=== PATIENT | male | born 1970 | race Caucasian/White ===

== ENCOUNTER 2018-08-08 14:37 | Inpatient (IN) | payer BC ==
[~2018-08-08] VITALS: Ht 195.6 cm; Wt 94.8 kg
[2018-08-08] MEDS ORDERED: IV NORMAL SALINE 1000ML BAG 1,000 ML IV ONE (16:30)
--- NOTE | 2018-08-08 16:40 | PHYS DOC ---
Past Medical History Past Medical History: Diabetes-Type II, High Cholesterol, Hypertension Additional Past Medical Histor: RAPID HEART RATE Past Surgical History: No Surgical History Additional Information: VAPOR Alcohol Use: None Drug Use: None Adult General Chief Complaint Chief Complaint: ABSCESS HPI HPI Patient is a 47 year old male presents with penile abscess. Patient states that this particular abscess has been there for one month. However the past few weeks and started to enlarge. Patient does report lancing the abscess himself at home and able to drain some fluid but not large amounts. He denies any fevers or chills. Denies any penile discharge or pain with urination. He does admit to not taking his medications including his diabetes medications. Additionally he reports a history of having smaller abscesses on his penis that he is placed and drained himself at home. He denies any previous MRSA infection. Review of Systems Review of Systems Constitutional: Denies fever or chills Eyes: Denies redness or eye pain HENT: Denies nasal congestion or sore throat Respiratory: Denies cough or shortness of breath Cardiovascular: Denies chest pain or palpitations GI: Denies abdominal pain, nausea, vomiting. : Denies dysuria, hematuria or penile discharge. Musculoskeletal: Denies back pain or joint pain Integument: Denies rash or skin lesions Neurologic: Denies headache or focal weakness Complete systems were reviewed and found to be within normal limits, except as documented in this note. Current Medications Current Medications Current Medications Medications (Trade) Dose Ordered Sig/Catr[place]ito Start Time Stop Time Status Last Admin Dose Admin Clindamycin Phosphate 50 ml @ 100 mls/hr 1X ONCE 08/08/18 18:00 08/08/18 18:29 Insulin Human Regular (HumuLIN R VIAL) 12 unit 1X ONCE 08/08/18 18:00 08/08/18 18:01 DC Sodium Chloride 1,000 ml @ 1,000 mls/hr 1X ONCE 08/08/18 16:30 08/08/18 17:29 DC 08/08/18 16:30 1,000 MLS/HR Allergies Allergies Allergies Coded Allergies Type Severity Reaction Last Updated Verified No Known Drug Allergies 08/08/18 No Physical Exam Physical Exam Constitutional: Well developed, well nourished, no acute distress, non-toxic appearance. HENT: Normocephalic, atraumatic, oropharynx moist. Eyes: EOMI, conjunctiva normal, no discharge. Neck: Normal range of motion, supple. Cardiovascular:Heart rate regular rhythm, no murmur Lungs & Thorax: Bilateral breath sounds clear to auscultation Abdomen: Bowel sounds normal, soft, no tenderness. : Indurated 4 cm circular abscess at the base of the penis, no penile discharge Skin: Warm, dry, indurated abscess on right medial thigh. Back: No tenderness, no CVA tenderness. Extremities: No clubbing, ROM intact, no edema. Neurologic: Alert and oriented X 3, normal motor function, no focal deficits noted. Psychologic: Affect normal, mood normal. Current Patient Data Vital Signs Vital Signs Date Time Temp Pulse Resp B/P (MAP) Pulse Ox O2 Delivery O2 Flow Rate FiO2 08/08/18 15:37 98.0 106 20 165/97 (119) 97 Room Air 98.0 Lab Values Laboratory Tests Test 08/08/18 16:40 08/08/18 16:55 Urine Collection Type Unknown Urine Color Yellow Urine Clarity Clear Urine pH 6.0 Urine Specific [place] >=1.030 Urine Protein Negative mg/dL (NEG-TRACE) Urine Glucose (UA) >=1000 mg/dL (NEG) Urine Ketones (Stick) Negative mg/dL (NEG) Urine Blood Negative (NEG) Urine Nitrite Negative (NEG) Urine Bilirubin Negative (NEG) Urine Urobilinogen Dipstick 0.2 mg/dL (0.2 mg/dL) Urine Leukocyte Esterase Negative (NEG) Urine RBC 3-5 /HPF (0-2) Urine WBC 0 /HPF (0-4) Urine Bacteria 0 /HPF (0-FEW) White Blood Count 11.2 x10^3/uL (4.0-11.0) H Red Blood Count 5.31 x10^6/uL (4.30-5.70) Hemoglobin 15.8 g/dL (13.0-17.5) Hematocrit 46.2 % (39.0-53.0) Mean Corpuscular Volume 87 fL (79-100) Mean Corpuscular Hemoglobin 30 pg (25-35) Mean Corpuscular Hemoglobin Concent 34 g/dL (31-37) Red Cell Distribution Width 13.3 % (11.5-14.5) Platelet Count 247 x10^3/uL (140-400) Neutrophils (%) (Auto) 68 % (31-73) Lymphocytes (%) (Auto) 23 % (24-48) L Monocytes (%) (Auto) 7 % (0-9) Eosinophils (%) (Auto) 2 % (0-3) Basophils (%) (Auto) 1 % (0-3) Neutrophils # (Auto) 7.6 x10^3uL (1.8-7.7) Lymphocytes # (Auto) 2.6 x10^3/uL (1.0-4.8) Monocytes # (Auto) 0.8 x10^3/uL (0.0-1.1) Eosinophils # (Auto) 0.2 x10^3/uL (0.0-0.7) Basophils # (Auto) 0.1 x10^3/uL (0.0-0.2) Sodium Level 136 mmol/L (136-145) Potassium Level 3.6 mmol/L (3.5-5.1) Chloride Level 101 mmol/L (98-107) Carbon Dioxide Level 23 mmol/L (21-32) Anion Gap 12 (6-14) Blood Urea Nitrogen 10 mg/dL (8-26) Creatinine 0.9 mg/dL (0.7-1.3) Estimated GFR (Cockcroft-Gault) 89.7 BUN/Creatinine Ratio 11 (6-20) Glucose Level 353 mg/dL (70-99) H Lactic Acid Level 0.6 mmol/L (0.4-2.0) Calcium Level 8.2 mg/dL (8.5-10.1) L Magnesium Level 1.8 mg/dL (1.8-2.4) Total Bilirubin 0.3 mg/dL (0.2-1.0) Aspartate Amino Transferase (AST) 18 U/L (15-37) Alanine Aminotransferase (ALT) 23 U/L (16-63) Alkaline Phosphatase 95 U/L (46-116) Total Protein 6.8 g/dL (6.4-8.2) Albumin 3.3 g/dL (3.4-5.0) L Albumin/Globulin Ratio 0.9 (1.0-1.7) L Laboratory Tests 08/08/18 16:55 Laboratory Tests 08/08/18 16:55 EKG EKG [] Radiology/Procedures Radiology/Procedures [] Course & Med Decision Making Course & Med Decision Making 47 year old male presented to ED for penile abscess. He states he has a history of these that he has lanced and drained himself at home, however this one will not go away. He denies any fever or chills. Patient does admit to being non-compliant for all his medications, including his diabetes medications. Labs and imaging were obtained and posted to chart. Systematic treatment provided with interval improvement. After further discussion with patient and reexamination it was determined that admission would be the best option so he can follow up with urology in the morning. Report given to Dr. Aguillon to follow up on ultra sound findings. Patient requiring admission for further evaluation and treatment. Discussed with Dr. Hopper who is in agreement with admission. Discussed findings and plan with patient and family, who acknowledge understanding and agreement. Dragon Disclaimer Dragon Disclaimer This electronic medical record was generated, in whole or in part, using a voice recognition dictation system. Departure Departure Impression: Primary Impression: Penile abscess Additional Impression: Hyperglycemia Disposition: 09 ADMITTED INPATIENT Admitting Physician: Other (Dr. Hopper) Condition: GUARDED Referrals: UNKNOWN PCP NAME (PCP) Problem Qualifiers RENA CABRAL DO Aug 08, 2018 16:40
[2018-08-08 16:53] LABS: BILIRUBIN,URINE NEGATIVE (NEG); CLARITY,URINE CLEAR; COLOR,URINE YELLOW; NITRITE,URINE NEGATIVE (NEG); PROTEIN,URINE NEGATIVE (NEG-TRACE); UROBILINOGEN,URINE 0.2 mg/dL (0.2 mg/dL)
[2018-08-08 17:00] LABS: BACTERIA,URINE 0 /HPF (0-FEW); WBC,URINE 0 /HPF (0-4)
[2018-08-08 17:20] LABS: BASO # 0.1 x10^3/uL (0.0-0.2); BASO % 1 % (0-3); EOS # 0.2 x10^3/uL (0.0-0.7); EOS % 2 % (0-3); HEMATOCRIT 46.2 % (39.0-53.0); HEMOGLOBIN 15.8 g/dL (13.0-17.5); LYMPH # 2.6 x10^3/uL (1.0-4.8); LYMPH % 23 % (24-48); MEAN CORPUSCULAR HEMOGLOBIN 30 pg (25-35); MEAN CORPUSCULAR HGB CONC 34 g/dL (31-37); MEAN CORPUSCULAR VOLUME 87 fL (79-100); MONO # 0.8 x10^3/uL (0.0-1.1); MONO % 7 % (0-9); NEUT # 7.6 x10^3uL (1.8-7.7); NEUT % 68 % (31-73); PLATELET COUNT 247 x10^3/uL (140-400); RED BLOOD COUNT 5.31 x10^6/uL (4.30-5.70); RED CELL DISTRIBUTION WIDTH 13.3 % (11.5-14.5); WHITE BLOOD COUNT 11.2 x10^3/uL (4.0-11.0)
[2018-08-08 17:24] LABS: CALCIUM 8.2 mg/dL (8.5-10.1); CREATININE 0.9 mg/dL (0.7-1.3); GFR 89.7; POTASSIUM 3.6 mmol/L (3.5-5.1)
[2018-08-08 17:30] LABS: ALBUMIN 3.3 g/dL (3.4-5.0); ALBUMIN/GLOBULIN RATIO 0.9 (1.0-1.7); MAGNESIUM 1.8 mg/dL (1.8-2.4); TOTAL BILIRUBIN 0.3 mg/dL (0.2-1.0); TOTAL PROTEIN 6.8 g/dL (6.4-8.2)
[2018-08-08] MEDS ORDERED: ACETAMINOPHEN 325 MG TABLET. PO PRN (18:00)
[2018-08-08] MEDS ORDERED: INSULIN REGULAR 100 UNIT/ML 3ML VIAL. SQ ONE (18:00)
[2018-08-08] MEDS ORDERED: CLINDAMYCIN 600MG PREMIX 50 ML IV ONE (18:00)
[2018-08-08] MEDS ORDERED: DEXTROSE 50% 25 GM / 50ML DISP.SYRIN. IV PRN ×2 (18:00→20:15)
--- NOTE | 2018-08-08 18:30 | RAD ---
Scrotal ultrasound: Reason for examination: Redness and swelling at the base of the penis and in the upper scrotum and right groin. The right testicle measures 4.8 x 2.2 x 3.4 cm in greatest dimension and appears homogeneous and shows normal vascular flow. The right epididymis is normal in size and shows normal vascular flow but contains a 3 mm cyst. There is a small right hydrocele. The left testicle measures 5.0 x 2.2 x 3.3 cm in greatest dimension and is homogeneous and shows normal vascular flow. No abnormality seen at the epididymis which shows normal vascular flow. A varicocele is present lateral to the left testicle. There is a small left hydrocele. In the right groin in the area of clinical concern, there is a small 1.5 x 0.5 x 0.5 cm complex fluid collection. At the base of the penis and upper scrotum, there is a complex fluid collection measuring approximately 2.5 x 1.5 x 0.7 cm in size. IMPRESSION: Small 3 mm right epididymal cyst. Small bilateral hydroceles. Left varicocele. Small complex fluid collections measuring 1.5 cm in greatest dimension at the right groin and 2.5 cm in greatest dimension at the base of the penis and upper scrotal region which correspond to the areas of clinical concern. Electronically signed by: Bhargavi Claros MD (08/08/2018 6:27 PM) [facility]
[2018-08-08 18:55] VITALS: BP 156/93
[2018-08-08] MEDS ORDERED: PIP/TAZO PER PHARMACY MC PRN (20:15)
[2018-08-08] MEDS ORDERED: VANCOMYCIN 2 GM in IV NORMAL SALINE 500ML BAG 500 ML IV ONE (20:30)
[2018-08-08] MEDS: IV NORMAL SALINE 1000ML BAG 1,000 ML IV SCH (21:39)
[2018-08-08] MEDS: PIPERACILLIN/TAZOBACTAM 3.375 GM in IV NORMAL SALINE 50ML 50 ML IV SCH (21:39)
[2018-08-08] MEDS: VANCOMYCIN PER PHARMACY MC PRN ×2 (22:04→22:13)
--- NOTE | 2018-08-08 22:07 | NUR ---
Pharmacy Vancomycin Dosing Note S:Consulted to monitor and dose vancomycin started 08/08/18. O:SERENA EUGENE is a 47 year old M with SCROTAL ABSCESS . Height: 6 feet, 5 inches Weight: 94.898397 kg [place] Body Weight: 89.10 Adjusted Body Weight: 91.38 Dosing Weight: Actual Other Antibiotics: ZOSYN 3.375GM IV Q6H LABS: Last BUN: 10 Last Creatinine: 0.9 Creatinine Clearance: >100 mL/min Last WBC: 11.2 Last Procalcitonin: Tmax (past 24 hours): Microbiology: I/O: Drug Levels: Last level: on at Last dose given at Vancomycin Dosing: Loading Dose: 2000 mg x1 08/08/182138 Dosing Weight: Actual Target Trough: 10-20 A: Based on: Actual Wt and CrCl P: 1. 08/09/18 1000 Vancomycin 1500 mg IV q12h 2. Follow up Trough level on 08/09/18 at 2130 3. Pharmacy will continue to monitor, follow and adjust therapy as needed. CHOCO DEL VALLE RPH, 08/08/[id number] Signed: 08/08/18 at 2208 by CHOCO DEL VALLE RPH PHA Addendum: 08/08/18 at 2218 by CHOCO DEL VALLE RPH PHA 08/10/18 0930 RESCHEDULED Vancomycin trough level Signed: 08/08/18 at 2218 by CHOCO DEL VALLE RPH PHA
[2018-08-08 23:00] VITALS: BP 118/77
[2018-08-09] MEDS: PIPERACILLIN/TAZOBACTAM 3.375 GM in IV NORMAL SALINE 50ML 50 ML IV SCH ×4 (00:33→16:31)
[2018-08-09 03:00] VITALS: BP 117/73
[2018-08-09 07:00] VITALS: BP 121/82
[2018-08-09] MEDS: INSULIN LISPRO 300 UNITS/3 ML INSULN.PEN. SQ SCH ×3 (07:38→16:36)
[2018-08-09] MEDS: IV NORMAL SALINE 1000ML BAG 1,000 ML IV SCH (07:48)
[2018-08-09] MEDS: VANCOMYCIN 1.5 GM in IV NORMAL SALINE 500ML BAG 500 ML IV SCH ×2 (07:49→22:35)
[2018-08-09] MEDS ORDERED: INSULIN LISPRO 300 UNITS/3 ML INSULN.PEN. SQ SCH (08:00)
[2018-08-09] MEDS ORDERED: LIDOCAINE 2% 20 ML VIAL. IJ ONE (10:00)
[2018-08-09] MEDS ORDERED: IBUPROFEN 200 MG TABLET. PO PRN ×2 (10:30→14:30)
[2018-08-09 10:59] LABS: CREATININE 0.8 mg/dL (0.7-1.3); GFR 102.7
[2018-08-09 11:00] VITALS: BP 150/93
--- NOTE | 2018-08-09 11:11 | PDOC ---
Provider Note Provider Note PT SEEN AND EXAMINED CONSULT DICTATED THANK YOU SEBASTIÁN BOWMAN MD Aug 09, 2018 11:11
[2018-08-09] MEDS: VANCOMYCIN PER PHARMACY MC PRN (11:26)
--- NOTE | 2018-08-09 14:59 | PDOC2 ---
UROLOGY CONSULT Date of Consult Date of Consult DATE: 08/09/18 TIME: 14:45 Reason for Consult Reason for Consult: scrotal abscess Source Source: Chart review, Patient History of Present Illness Reason for Visit: 47 yo male admitted for scrotal abscess. He has noticed increased swelling of upper scrotum after trying to waqas a pimple on his penis a few days ago. Also has noticed a boil on right upper thigh. No fevers, chills. Past Medical History Endocrine: Diabetes Family History Family History: Family History Unknown Current Medications Current Medications Current Medications Acetaminophen (Tylenol) 650 mg PRN Q4HRS PRN PO FEVER; Start 08/08/18 at 18:00 ; Stop 08/09/18 at 17:59 Clindamycin Phosphate 50 ml @ 100 mls/hr 1X ONCE IV Last administered on 08/08at 18:20; Start 08/08/18 at 18:00; Stop 08/08/18 at 18:29; Status DC Dextrose (Dextrose 50%-Water Syringe) 12.5 gm PRN Q15MIN PRN IV SEE COMMENTS; Start 08/08/18 at 18:00 Dextrose (Dextrose 50%-Water Syringe) 12.5 gm PRN Q15MIN PRN IV SEE COMMENTS; Start 08/08/18 at 20:15; Status UNV Ibuprofen (Motrin) 200 mg PRN Q6HRS PRN PO INFLAMMATION Last administered on at 10:33; Start 08/09/18 at 10:30; Stop 08/09/18 at 14:30; Status DC Ibuprofen (Motrin) 600 mg PRN Q6HRS PRN PO INFLAMMATION Last administered on at 14:36; Start 08/09/18 at 14:30 Insulin Human Lispro (HumaLOG) 0-5 UNITS TIDWMEALS SQ Last administered on 08/09at 11:54; Start 08/09/18 at 08:00 Insulin Human Lispro (HumaLOG) 0-5 UNITS TIDWMEALS SQ ; Start 08/09/18 at 08:00 ; Status UNV Insulin Human Regular (HumuLIN R VIAL) 12 unit 1X ONCE SQ Last administered on 08/08/18at 18:20; Start 08/08/18 at 18:00; Stop 08/08/18 at 18:01; Status DC Lactobacillus Rhamnosus (Culturelle) 1 cap BID PO ; Start 08/09/18 at 21:00 Lidocaine HCl 10 ml 1X ONCE IJ Last administered on 08/09/18at 10:00; Start at 10:00; Stop 08/09/18 at 10:01; Status DC Piperacillin Sod/ Tazobactam Sod (Zosyn Per Pharmacy) 1 each PRN DAILY PRN MC SEE COMMENTS; Start 08/08/18 at 20:15 Piperacillin Sod/ Tazobactam Sod 3.375 gm/Sodium Chloride 50 ml @ 100 mls/hr Q6HRS IV Last administered on 08/09/18at 11:27; Start 08/08/18 at 20:30 Sodium Chloride 1,000 ml @ 75 mls/hr [id number] IV Last administered on at 07:48; Start 08/08/18 at 21:00 Sodium Chloride 1,000 ml @ 1,000 mls/hr 1X ONCE IV Last administered on at 16:30; Start 08/08/18 at 16:30; Stop 08/08/18 at 17:29; Status DC Vancomycin HCl (Vanco Per Pharmacy) 1 each PRN DAILY PRN MC SEE COMMENTS Last administered on 08/09/18at 11:26; Start 08/08/18 at 20:15 Vancomycin HCl (Vancomycin Trough Level) 1 each 1X ONCE MC ; Start 08/10/18 at 09:30; Stop 08/10/18 at 09:31 Vancomycin HCl 1.5 gm/Sodium Chloride 500 ml @ 250 mls/hr Q12H IV Last administered on 08/09/18at 07:49; Start 08/09/18 at 10:00 Vancomycin HCl 2 gm/Sodium Chloride 500 ml @ 250 mls/hr 1X ONCE IV Last administered on 08/08/18at 21:39; Start 08/08/18 at 20:30; Stop 08/08/18 at 22:29 ; Status DC Allergies Allergies: Coded Allergies: No Known Drug Allergies (Unverified , 08/08/18) ROS Review Of Systems: CONSTITUTIONAL: No fever or chills EYES: No recent changes SKIN: No rash or itching CARDIOVASCULAR: No chest pain, syncope, palpitations, or edema RESPIRATORY: No SOB or cough GASTROINTESTINAL: No nausea, vomiting or abdominal pain NEUROLOGICAL: No headaches or weakness ENDOCRINE: No cold or heat intolerance GENITOURINARY: No urgency or frequency of urination MUSCULOSKELETAL: No back pain or joint pain LYMPHATICS: No enlarged lymph nodes PSYCHIATRIC: No anxiety or depression Physical Exam Physical Exam: Except as noted in HPI: General: Pleasant, no acute distress, well groomed Eyes: conjunctiva anicteric, eyes full range of motion ENT: moist oral mucosa, normal dentition Neck: Trachea midline, no masses Respiratory: unlabored breathing, not using accessory muscles, no crackles or wheezes Cardiovascular: no peripheral edema Abdomen: nontender, nondistended, no hepatosplenomegaly, no masses Skin: no rashes or skin lesions on visualized skin except as noted below Psych: normal mood, affect. Alert and oriented x 3. : 3 cm boil uper scrotum near penile junction. Also 3 cm boil right upper thigh near groin crease. Vitals VITALS Vital Signs Date Time Temp Pulse Resp B/P (MAP) Pulse Ox O2 Delivery O2 Flow Rate FiO2 08/09/18 11:00 97.6 92 18 150/93 (112) 99 Room Air 97.6 Labs Labs Laboratory Tests Test 08/08/18 16:40 08/08/18 16:55 08/08/18 20:57 08/09/18 07:33 Urine Collection Type Unknown Urine Color Yellow Urine Clarity Clear Urine pH 6.0 Urine Specific [place] >=1.030 Urine Protein Negative mg/dL (NEG-TRACE) Urine Glucose (UA) >=1000 mg/dL (NEG) Urine Ketones (Stick) Negative mg/dL (NEG) Urine Blood Negative (NEG) Urine Nitrite Negative (NEG) Urine Bilirubin Negative (NEG) Urine Urobilinogen Dipstick 0.2 mg/dL (0.2 mg/dL) Urine Leukocyte Esterase Negative (NEG) Urine RBC 3-5 /HPF (0-2) Urine WBC 0 /HPF (0-4) Urine Bacteria 0 /HPF (0-FEW) White Blood Count 11.2 x10^3/uL (4.0-11.0) Red Blood Count 5.31 x10^6/uL (4.30-5.70) Hemoglobin 15.8 g/dL (13.0-17.5) Hematocrit 46.2 % (39.0-53.0) Mean Corpuscular Volume 87 fL (79-100) Mean Corpuscular Hemoglobin 30 pg (25-35) Mean Corpuscular Hemoglobin Concent 34 g/dL (31-37) Red Cell Distribution Width 13.3 % (11.5-14.5) Platelet Count 247 x10^3/uL (140-400) Neutrophils (%) (Auto) 68 % (31-73) Lymphocytes (%) (Auto) 23 % (24-48) Monocytes (%) (Auto) 7 % (0-9) Eosinophils (%) (Auto) 2 % (0-3) Basophils (%) (Auto) 1 % (0-3) Neutrophils # (Auto) 7.6 x10^3uL (1.8-7.7) Lymphocytes # (Auto) 2.6 x10^3/uL (1.0-4.8) Monocytes # (Auto) 0.8 x10^3/uL (0.0-1.1) Eosinophils # (Auto) 0.2 x10^3/uL (0.0-0.7) Basophils # (Auto) 0.1 x10^3/uL (0.0-0.2) Sodium Level 136 mmol/L (136-145) Potassium Level 3.6 mmol/L (3.5-5.1) Chloride Level 101 mmol/L (98-107) Carbon Dioxide Level 23 mmol/L (21-32) Anion Gap 12 (6-14) Blood Urea Nitrogen 10 mg/dL (8-26) Creatinine 0.9 mg/dL (0.7-1.3) Estimated GFR (Cockcroft-Gault) 89.7 BUN/Creatinine Ratio 11 (6-20) Glucose Level 353 mg/dL (70-99) Lactic Acid Level 0.6 mmol/L (0.4-2.0) Calcium Level 8.2 mg/dL (8.5-10.1) Magnesium Level 1.8 mg/dL (1.8-2.4) Total Bilirubin 0.3 mg/dL (0.2-1.0) Aspartate Amino Transf (AST/SGOT) 18 U/L (15-37) Alanine Aminotransferase (ALT/SGPT) 23 U/L (16-63) Alkaline Phosphatase 95 U/L (46-116) Total Protein 6.8 g/dL (6.4-8.2) Albumin 3.3 g/dL (3.4-5.0) Albumin/Globulin Ratio 0.9 (1.0-1.7) Glucose (Fingerstick) 160 mg/dL (70-99) 235 mg/dL (70-99) Test 08/09/18 10:35 08/09/18 11:25 Creatinine 0.8 mg/dL (0.7-1.3) Estimated GFR (Cockcroft-Gault) 102.7 Glucose (Fingerstick) 266 mg/dL (70-99) Laboratory Tests Test 08/08/18 16:40 08/08/18 16:55 08/08/18 20:57 08/09/18 07:33 Urine Collection Type Unknown Urine Color Yellow Urine Clarity Clear Urine pH 6.0 Urine Specific [place] >=1.030 Urine Protein Negative mg/dL (NEG-TRACE) Urine Glucose (UA) >=1000 mg/dL (NEG) Urine Ketones (Stick) Negative mg/dL (NEG) Urine Blood Negative (NEG) Urine Nitrite Negative (NEG) Urine Bilirubin Negative (NEG) Urine Urobilinogen Dipstick 0.2 mg/dL (0.2 mg/dL) Urine Leukocyte Esterase Negative (NEG) Urine RBC 3-5 /HPF (0-2) Urine WBC 0 /HPF (0-4) Urine Bacteria 0 /HPF (0-FEW) White Blood Count 11.2 x10^3/uL (4.0-11.0) Red Blood Count 5.31 x10^6/uL (4.30-5.70) Hemoglobin 15.8 g/dL (13.0-17.5) Hematocrit 46.2 % (39.0-53.0) Mean Corpuscular Volume 87 fL (79-100) Mean Corpuscular Hemoglobin 30 pg (25-35) Mean Corpuscular Hemoglobin Concent 34 g/dL (31-37) Red Cell Distribution Width 13.3 % (11.5-14.5) Platelet Count 247 x10^3/uL (140-400) Neutrophils (%) (Auto) 68 % (31-73) Lymphocytes (%) (Auto) 23 % (24-48) Monocytes (%) (Auto) 7 % (0-9) Eosinophils (%) (Auto) 2 % (0-3) Basophils (%) (Auto) 1 % (0-3) Neutrophils # (Auto) 7.6 x10^3uL (1.8-7.7) Lymphocytes # (Auto) 2.6 x10^3/uL (1.0-4.8) Monocytes # (Auto) 0.8 x10^3/uL (0.0-1.1) Eosinophils # (Auto) 0.2 x10^3/uL (0.0-0.7) Basophils # (Auto) 0.1 x10^3/uL (0.0-0.2) Sodium Level 136 mmol/L (136-145) Potassium Level 3.6 mmol/L (3.5-5.1) Chloride Level 101 mmol/L (98-107) Carbon Dioxide Level 23 mmol/L (21-32) Anion Gap 12 (6-14) Blood Urea Nitrogen 10 mg/dL (8-26) Creatinine 0.9 mg/dL (0.7-1.3) Estimated GFR (Cockcroft-Gault) 89.7 BUN/Creatinine Ratio 11 (6-20) Glucose Level 353 mg/dL (70-99) Lactic Acid Level 0.6 mmol/L (0.4-2.0) Calcium Level 8.2 mg/dL (8.5-10.1) Magnesium Level 1.8 mg/dL (1.8-2.4) Total Bilirubin 0.3 mg/dL (0.2-1.0) Aspartate Amino Transf (AST/SGOT) 18 U/L (15-37) Alanine Aminotransferase (ALT/SGPT) 23 U/L (16-63) Alkaline Phosphatase 95 U/L (46-116) Total Protein 6.8 g/dL (6.4-8.2) Albumin 3.3 g/dL (3.4-5.0) Albumin/Globulin Ratio 0.9 (1.0-1.7) Glucose (Fingerstick) 160 mg/dL (70-99) 235 mg/dL (70-99) Test 08/09/18 10:35 08/09/18 11:25 Creatinine 0.8 mg/dL (0.7-1.3) Estimated GFR (Cockcroft-Gault) 102.7 Glucose (Fingerstick) 266 mg/dL (70-99) Assessment/Plan Assessment/Plan Informed consent obtained. Scrotum and right thigh sterilely prepped and draped. Lidocaine injected in to each abscess. Incision made in the scrotal and right thigh abscess with drainage of several cc's of pus. Loculations broken down with a clamp. Sterile packing tape inserted and gauze applied. No complications. Antibiotics per ID. OK for d/c from urology perspective. Needs better glucose control to prevent future infections. F/U in 1 week in urology clinic. NHAN PICHARDO MD Aug 09, 2018 14:59
[2018-08-09 15:00] VITALS: BP 134/83
[2018-08-09] MEDS ORDERED: hydrALAZINE 25 MG TABLET PO PRN (16:45)
[2018-08-09] MEDS ORDERED: ENOXAPARIN 40 MG/0.4 ML SYRINGE. SQ SCH (17:00)
[2018-08-09] MEDS: hydroCHLOROthiazide 12.5 MG CAPSULE PO SCH (17:06)
[2018-08-09] MEDS: LISINOPRIL 20 MG TABLET PO SCH (17:06)
--- NOTE | 2018-08-09 17:10 | PDOC1 ---
History and Physical Date of Admission Date of Admission DATE: 08/09/18 TIME: 16:54 History of Present Illness History of Present Illness 47 yo male hx of DM and HTN, not taking meds in 2 years who presents with scrotal abscess and right thigh abscess since many months. has tried lancing at home with drainage but no improvement. no fever, no penile discharge. no scrotal pain. no dysuria. no hx of MRSA infection in the past. patient admitted by hospitalist service for further evaluation. Past Medical History Past Medical History hx of DM, HTN not on meds Endocrine: Diabetes Past Surgical History Past Surgical History denies Family History Family History dm Family History: Family History Unknown Social History Smoke: No ALCOHOL: none Drugs: None Current Problem List Problem List Problems Medical Problems: (1) Hyperglycemia Status: Acute (2) Penile abscess Status: Acute Current Medications Current Medications Current Medications Sodium Chloride 1,000 ml @ 1,000 mls/hr 1X ONCE IV Last administered on at 16:30; Start 08/08/18 at 16:30; Stop 08/08/18 at 17:29; Status DC Clindamycin Phosphate 50 ml @ 100 mls/hr 1X ONCE IV Last administered on 08/08at 18:20; Start 08/08/18 at 18:00; Stop 08/08/18 at 18:29; Status DC Insulin Human Regular (HumuLIN R VIAL) 12 unit 1X ONCE SQ Last administered on 08/08/18at 18:20; Start 08/08/18 at 18:00; Stop 08/08/18 at 18:01; Status DC Acetaminophen (Tylenol) 650 mg PRN Q4HRS PRN PO FEVER; Start 08/08/18 at 18:00 ; Stop 08/09/18 at 17:59 Insulin Human Lispro (HumaLOG) 0-5 UNITS TIDWMEALS SQ Last administered on 08/09at 16:36; Start 08/09/18 at 08:00 Dextrose (Dextrose 50%-Water Syringe) 12.5 gm PRN Q15MIN PRN IV SEE COMMENTS; Start 08/08/18 at 18:00 Piperacillin Sod/ Tazobactam Sod (Zosyn Per Pharmacy) 1 each PRN DAILY PRN MC SEE COMMENTS; Start 08/08/18 at 20:15 Vancomycin HCl (Vanco Per Pharmacy) 1 each PRN DAILY PRN MC SEE COMMENTS Last administered on 08/09/18at 11:26; Start 08/08/18 at 20:15 Insulin Human Lispro (HumaLOG) 0-5 UNITS TIDWMEALS SQ ; Start 08/09/18 at 08:00 ; Status UNV Dextrose (Dextrose 50%-Water Syringe) 12.5 gm PRN Q15MIN PRN IV SEE COMMENTS; Start 08/08/18 at 20:15; Status UNV Sodium Chloride 1,000 ml @ 75 mls/hr [id number] IV Last administered on at 07:48; Start 08/08/18 at 21:00 Piperacillin Sod/ Tazobactam Sod 3.375 gm/Sodium Chloride 50 ml @ 100 mls/hr Q6HRS IV Last administered on 08/09/18at 16:31; Start 08/08/18 at 20:30 Vancomycin HCl 2 gm/Sodium Chloride 500 ml @ 250 mls/hr 1X ONCE IV Last administered on 08/08/18at 21:39; Start 08/08/18 at 20:30; Stop 08/08/18 at 22:29 ; Status DC Vancomycin HCl 1.5 gm/Sodium Chloride 500 ml @ 250 mls/hr Q12H IV Last administered on 08/09/18at 07:49; Start 08/09/18 at 10:00 Vancomycin HCl (Vancomycin Trough Level) 1 each 1X ONCE MC ; Start 08/10/18 at 09:30; Stop 08/10/18 at 09:31 Lidocaine HCl 10 ml 1X ONCE IJ Last administered on 08/09/18at 10:00; Start at 10:00; Stop 08/09/18 at 10:01; Status DC Ibuprofen (Motrin) 200 mg PRN Q6HRS PRN PO INFLAMMATION Last administered on at 10:33; Start 08/09/18 at 10:30; Stop 08/09/18 at 14:30; Status DC Lactobacillus Rhamnosus (Culturelle) 1 cap BID PO ; Start 08/09/18 at 21:00 Ibuprofen (Motrin) 600 mg PRN Q6HRS PRN PO INFLAMMATION Last administered on at 14:36; Start 08/09/18 at 14:30 Enoxaparin Sodium (Lovenox 40mg Syringe) 40 mg Q24H SQ Last administered on at 16:41; Start 08/09/18 at 17:00 Allergies Allergies: Coded Allergies: No Known Drug Allergies (Unverified , 08/08/18) ROS Review of System CONSTITUTIONAL: No fever or chills EYES: No recent changes SKIN: No rash or itching CARDIOVASCULAR: No chest pain, syncope, palpitations, or edema RESPIRATORY: No SOB or cough GASTROINTESTINAL: No nausea, vomiting or abdominal pain NEUROLOGICAL: No headaches or weakness ENDOCRINE: No cold or heat intolerance GENITOURINARY: No urgency or frequency of urination MUSCULOSKELETAL: No back pain or joint pain LYMPHATICS: No enlarged lymph nodes PSYCHIATRIC: No anxiety or depression Physical Exam Physical Exam GENERAL: No apparent distress. Alert and oriented. HEENT: Head normocephalic, atraumatic. NECK: Supple LUNGS: Clear to auscultation. HEART: RRR, S1, S2 present, pulses intact ABDOMEN: Soft, positive bowel sounds. EXTREMITIES: right upper thigh abscess with fluctuance NEUROLOGIC: Normal speech, normal tone PSYCHIATRIC: Normal affect, normal mood. SKIN: No ulceration. : scrotal abscess present Vitals Vitals Vital Signs Date Time Temp Pulse Resp B/P (MAP) Pulse Ox O2 Delivery O2 Flow Rate FiO2 08/09/18 15:00 97.7 81 18 134/83 (100) 99 Room Air 97.7 Labs Labs Laboratory Tests Test 08/08/18 16:40 08/08/18 16:55 08/08/18 20:57 08/09/18 07:33 Urine Collection Type Unknown Urine Color Yellow Urine Clarity Clear Urine pH 6.0 Urine Specific [place] >=1.030 Urine Protein Negative mg/dL (NEG-TRACE) Urine Glucose (UA) >=1000 mg/dL (NEG) Urine Ketones (Stick) Negative mg/dL (NEG) Urine Blood Negative (NEG) Urine Nitrite Negative (NEG) Urine Bilirubin Negative (NEG) Urine Urobilinogen Dipstick 0.2 mg/dL (0.2 mg/dL) Urine Leukocyte Esterase Negative (NEG) Urine RBC 3-5 /HPF (0-2) Urine WBC 0 /HPF (0-4) Urine Bacteria 0 /HPF (0-FEW) White Blood Count 11.2 x10^3/uL (4.0-11.0) Red Blood Count 5.31 x10^6/uL (4.30-5.70) Hemoglobin 15.8 g/dL (13.0-17.5) Hematocrit 46.2 % (39.0-53.0) Mean Corpuscular Volume 87 fL (79-100) Mean Corpuscular Hemoglobin 30 pg (25-35) Mean Corpuscular Hemoglobin Concent 34 g/dL (31-37) Red Cell Distribution Width 13.3 % (11.5-14.5) Platelet Count 247 x10^3/uL (140-400) Neutrophils (%) (Auto) 68 % (31-73) Lymphocytes (%) (Auto) 23 % (24-48) Monocytes (%) (Auto) 7 % (0-9) Eosinophils (%) (Auto) 2 % (0-3) Basophils (%) (Auto) 1 % (0-3) Neutrophils # (Auto) 7.6 x10^3uL (1.8-7.7) Lymphocytes # (Auto) 2.6 x10^3/uL (1.0-4.8) Monocytes # (Auto) 0.8 x10^3/uL (0.0-1.1) Eosinophils # (Auto) 0.2 x10^3/uL (0.0-0.7) Basophils # (Auto) 0.1 x10^3/uL (0.0-0.2) Sodium Level 136 mmol/L (136-145) Potassium Level 3.6 mmol/L (3.5-5.1) Chloride Level 101 mmol/L (98-107) Carbon Dioxide Level 23 mmol/L (21-32) Anion Gap 12 (6-14) Blood Urea Nitrogen 10 mg/dL (8-26) Creatinine 0.9 mg/dL (0.7-1.3) Estimated GFR (Cockcroft-Gault) 89.7 BUN/Creatinine Ratio 11 (6-20) Glucose Level 353 mg/dL (70-99) Lactic Acid Level 0.6 mmol/L (0.4-2.0) Calcium Level 8.2 mg/dL (8.5-10.1) Magnesium Level 1.8 mg/dL (1.8-2.4) Total Bilirubin 0.3 mg/dL (0.2-1.0) Aspartate Amino Transf (AST/SGOT) 18 U/L (15-37) Alanine Aminotransferase (ALT/SGPT) 23 U/L (16-63) Alkaline Phosphatase 95 U/L (46-116) Total Protein 6.8 g/dL (6.4-8.2) Albumin 3.3 g/dL (3.4-5.0) Albumin/Globulin Ratio 0.9 (1.0-1.7) Glucose (Fingerstick) 160 mg/dL (70-99) 235 mg/dL (70-99) Test 08/09/18 10:35 08/09/18 11:25 08/09/18 16:33 Creatinine 0.8 mg/dL (0.7-1.3) Estimated GFR (Cockcroft-Gault) 102.7 Glucose (Fingerstick) 266 mg/dL (70-99) 221 mg/dL (70-99) Laboratory Tests Test 08/08/18 16:55 08/08/18 20:57 08/09/18 07:33 08/09/18 10:35 White Blood Count 11.2 x10^3/uL (4.0-11.0) Red Blood Count 5.31 x10^6/uL (4.30-5.70) Hemoglobin 15.8 g/dL (13.0-17.5) Hematocrit 46.2 % (39.0-53.0) Mean Corpuscular Volume 87 fL (79-100) Mean Corpuscular Hemoglobin 30 pg (25-35) Mean Corpuscular Hemoglobin Concent 34 g/dL (31-37) Red Cell Distribution Width 13.3 % (11.5-14.5) Platelet Count 247 x10^3/uL (140-400) Neutrophils (%) (Auto) 68 % (31-73) Lymphocytes (%) (Auto) 23 % (24-48) Monocytes (%) (Auto) 7 % (0-9) Eosinophils (%) (Auto) 2 % (0-3) Basophils (%) (Auto) 1 % (0-3) Neutrophils # (Auto) 7.6 x10^3uL (1.8-7.7) Lymphocytes # (Auto) 2.6 x10^3/uL (1.0-4.8) Monocytes # (Auto) 0.8 x10^3/uL (0.0-1.1) Eosinophils # (Auto) 0.2 x10^3/uL (0.0-0.7) Basophils # (Auto) 0.1 x10^3/uL (0.0-0.2) Sodium Level 136 mmol/L (136-145) Potassium Level 3.6 mmol/L (3.5-5.1) Chloride Level 101 mmol/L (98-107) Carbon Dioxide Level 23 mmol/L (21-32) Anion Gap 12 (6-14) Blood Urea Nitrogen 10 mg/dL (8-26) Creatinine 0.9 mg/dL (0.7-1.3) 0.8 mg/dL (0.7-1.3) Estimated GFR (Cockcroft-Gault) 89.7 102.7 BUN/Creatinine Ratio 11 (6-20) Glucose Level 353 mg/dL (70-99) Lactic Acid Level 0.6 mmol/L (0.4-2.0) Calcium Level 8.2 mg/dL (8.5-10.1) Magnesium Level 1.8 mg/dL (1.8-2.4) Total Bilirubin 0.3 mg/dL (0.2-1.0) Aspartate Amino Transf (AST/SGOT) 18 U/L (15-37) Alanine Aminotransferase (ALT/SGPT) 23 U/L (16-63) Alkaline Phosphatase 95 U/L (46-116) Total Protein 6.8 g/dL (6.4-8.2) Albumin 3.3 g/dL (3.4-5.0) Albumin/Globulin Ratio 0.9 (1.0-1.7) Glucose (Fingerstick) 160 mg/dL (70-99) 235 mg/dL (70-99) Test 08/09/18 11:25 08/09/18 16:33 Glucose (Fingerstick) 266 mg/dL (70-99) 221 mg/dL (70-99) VTE Prophylaxis Ordered VTE Prophylaxis Devices: Yes VTE Pharmacological Prophylaxi: Yes Assessment/Plan Assessment/Plan ASSESSMENT: Scrotal Abscess and Right Thigh Abscess in setting of Untreated and UC DM-2 HTN PLAN: admit to medical floor bed continue vanc and zosyn ID and urology consults s/p I and D at bedside today start hctz and lisinopril, prn oral ford check FLP, TSH, and a1c NSAID and tylenol for pain control diabetic diet and education place on SSI for now likely will need long acting insulin at discharge needs diabetic supplies and PCP at discharge MINO KUMARI MD Aug 09, 2018 17:10
[2018-08-09 19:00] VITALS: BP 131/79
[2018-08-09] MEDS: LACTOBACILLUS RHAMNOSUS GG 1 CAPSULE. PO SCH (21:22)
[2018-08-09 23:00] VITALS: BP 118/68
--- NOTE | 2018-08-10 00:23 | CONS ---
DATE OF CONSULTATION: 08/08/2018 REFERRING PHYSICIAN: Dr. Osei Jackson. REASON FOR CONSULTATION: Scrotal and rt thigh abscesses HISTORY OF PRESENT ILLNESS: A 47-year-old male with history of diabetes mellitus type 2, noncompliant with his medication, hyperlipidemia, hypertension, who presented to the ER on 08/08/2018 with swelling over the penile area and scrotum and right groin for a couple of days. He tried to waqas it on his own, was able to drain some fluid not large amount. He did not have any fevers or chills. It did not get better. He is not taking his diabetes medication. He has had similar abscesses in the past, which has drained on his own. Denies any history of MRSA infection. He was found to have mild leukocytosis. UA was negative except for glucose of 1000. Lactate was normal. Glucose was high at 353. He had an abdominal and scrotal ultrasound, which showed 3 mm right epididymal cyst, small bilateral hydroceles, left varicocele, small complex fluid collection 1.5 cm greatest dimension in the right groin and 2.5 cm at the base of the penis and upper scrotal area with area of clinical concern. Urology has been consulted. He is awaiting bedside I and D. The patient was started on empiric IV vancomycin and Zosyn. ID consult has been requested for antibiotic management. PAST MEDICAL HISTORY: Diabetes mellitus, poorly controlled, noncompliance, hyperlipidemia, hypertension, history of lipoma, recurrent cyst of the penile and scrotal area, status post lancing on his own at home, history of skin and soft tissue infection in the past, though he denies any history of MRSA infection. REVIEW OF SYSTEMS: Negative except for above. CURRENT MEDICATION: IV vancomycin and Zosyn. The patient also got clindamycin in the ER. ALLERGIES: No known drug allergies. SOCIAL HISTORY: Denies smoking. Uses vapor. No alcohol, no drug abuse. PHYSICAL EXAMINATION: Pt seen with RN in room VITAL SIGNS: Temperature 98, pulse 77, respiration rate 18, blood pressure 120/82, oxygen saturation 99% on room air. GENERAL: Well-developed, well-nourished male, in no acute distress, nontoxic appearing, cooperative, pleasant. HEENT: Normocephalic, atraumatic, anicteric. No thrush. Oral mucosa moist. NECK: Supple. No JVD. No thyromegaly. LUNGS: Clear bilaterally. No wheezing. HEART: S1, S2. No rubs, gallops, murmurs or rubs. ABDOMEN: Soft, nontender, nondistended, no rebound or guarding. GENITOURINARY: At the base of the penis there is a 2 x 3 cm swelling with mild surrounding erythema. No GUD, no penile discharge. Right medial groin shows swelling about 2.3 cm in size. Mild erythema overlying. No underlying fluctuance appears like a cyst with secondary bacterial infection. BACK: Reveals normal curvature. No CVA tenderness. EXTREMITIES: No edema, no cyanosis, no clubbing. NEUROLOGICAL: Alert and oriented x 3. Grossly nonfocal. PSYCHIATRIC: Cooperative, appropriate mood and affect. LABORATORY DATA: WBC 11.2, hemoglobin 15.8, hematocrit 46.2, platelets 247. Sodium 136, potassium 3.6, chloride 101, bicarb 23, BUN 10, creatinine 0.9, glucose 353, lactate of 0.6, calcium 8.2. LFTs within normal limits. Albumin 3.3. UA shows greater than 1000 glucose, otherwise negative. IMAGING DATA: Abdominal and scrotal ultrasound shows 3 mm right epididymal cyst. Small bilateral hydroceles, left varicocele, small complex fluid collection 1.5 cm in greatest dimension. The right groin 2.5 cm at the base of the penis and upper scrotal region. IMPRESSION: 1. Scrotal cellulitis, mild. 2. Penile abscess 3. Right groin abscess, ? underlying cyst 4. Diabetes mellitus, poorly controlled. 5. Noncompliance with medication. 6. Bilateral hydrocele. 7. Left varicocele. RECOMMENDATIONS: 1. Continue empiric IV vancomycin and Zosyn. 2. Status post one dose of clindamycin in the ER. 3. Follow up culture and susceptibility results. 4. The patient is awaiting urology to perform I and D later today 5. Continue supportive care. 6. Follow up labs in a.m. and cultures. Thank you, Dr. Jackson for consulting Infectious Disease to participate in this patient's care. If you have any questions, do not hesitate to contact me. SEBASTIÁN BOWMAN MD DR: BONI/ignacio JOB#: [id number] / [id number] JOHN
[2018-08-10] MEDS: PIPERACILLIN/TAZOBACTAM 3.375 GM in IV NORMAL SALINE 50ML 50 ML IV SCH ×3 (00:39→14:00)
[2018-08-10] MEDS: IV NORMAL SALINE 1000ML BAG 1,000 ML IV SCH (00:39)
[2018-08-10 03:00] VITALS: BP 128/66
--- NOTE | 2018-08-10 03:41 | NUR ---
Patient has rested quietly this shift. Patient continues to deny pain. Call light remains in reach. Will monitor.
[2018-08-10 07:00] VITALS: BP 102/71
[2018-08-10] MEDS: hydroCHLOROthiazide 12.5 MG CAPSULE PO SCH (07:38)
[2018-08-10] MEDS: LISINOPRIL 20 MG TABLET PO SCH (07:39)
[2018-08-10] MEDS: LACTOBACILLUS RHAMNOSUS GG 1 CAPSULE. PO SCH (07:39)
[2018-08-10] MEDS: INSULIN LISPRO 300 UNITS/3 ML INSULN.PEN. SQ SCH ×2 (07:42→11:54)
--- NOTE | 2018-08-10 08:47 | PDOC ---
MICHAEL OCHOA FLIGHT STEWARD 08/10/18 0847: SUBJECTIVE Subjective Pt did ok throughout the night. Denies pain or difficulty with urination. Would like to go home today if possible, but understands if he has to stay another n ight. OBJECTIVE Objective Physical Exam: General appearance: Alert and Oriented Head: Normocephalic, without obvious abnormality Eyes: conjunctivae/corneas clear. PERRL, EOM's intact. Fundi benign Lungs: Regular respirations, non labored breathing Abdomen: soft, non-tender. . No masses, no organomegaly Pelvic: + swelling at the base of hte penis and top of right scrotum. Non tender with palpation. Packing in place and end of packing noted. Extremities:+ right inner thigh has an area that is open and packed with iodoform. End of packing noted. Non tender with palpation. Vital Signs Vital Signs Date Time Temp Pulse Resp B/P (MAP) Pulse Ox O2 Delivery O2 Flow Rate FiO2 08/10/18 08:00 Room Air 08/10/18 07:39 102/71 08/10/18 03:00 97.5 66 18 128/66 (86) 98 Room Air 97.5 08/09/18 23:00 97.7 76 18 118/68 (85) 98 Room Air 97.7 08/09/18 20:00 Room Air 08/09/18 19:00 97.9 80 18 131/79 (96) 98 Room Air 97.9 08/09/18 17:06 81 134/83 08/09/18 15:00 97.7 81 18 134/83 (100) 99 Room Air 97.7 08/09/18 11:00 97.6 92 18 150/93 (112) 99 Room Air 97.6 I & O Intake and Output 08/10/18 07:00 Intake Total 2122 ml Balance 2122 ml Intake Oral 1150 ml IV Total 972 ml # Voids 5 # Bowel Movements 1 PHYSICAL EXAM Physical Exam Physical Exam: General appearance: Alert and Oriented Head: Normocephalic, without obvious abnormality Eyes: conjunctivae/corneas clear. PERRL, EOM's intact. Fundi benign Lungs: Regular respirations, non labored breathing Abdomen: soft, non-tender. . No masses, no organomegaly Pelvic: + swelling at the base of hte penis and top of right scrotum. Non tender with palpation. Packing in place and end of packing noted. Extremities:+ right inner thigh has an area that is open and packed with iodoform. End of packing noted. Non tender with palpation. ASSESSMENT/PLAN Assessment/Plan pt is S/P I and D day #1: Wound care team ordered for evaluation and teaching for patient prior to discharge. If Ok with ID/medical team, could D/C later today from a Urology perspective. Will need follow up appointment next with Dr. Pichardo; will have media intern arrange. Will follow while in house. Problems: (1) Scrotal abscess COMMENT Lab Laboratory Tests Test 08/09/18 10:35 08/09/18 11:25 08/09/18 16:33 08/09/18 20:30 Creatinine 0.8 mg/dL (0.7-1.3) Estimated GFR (Cockcroft-Gault) 102.7 Glucose (Fingerstick) 266 mg/dL (70-99) 221 mg/dL (70-99) 245 mg/dL (70-99) Test 08/10/18 07:35 Glucose (Fingerstick) 201 mg/dL (70-99) NHAN PICHARDO MD 08/16/18 1552: ASSESSMENT/PLAN Assessment/Plan Agree with assessment and plan. MICHAEL OCHOA APRN Aug 10, 2018 08:47 NHAN PICHARDO MD Aug 16, 2018 15:52
--- NOTE | 2018-08-10 08:49 | PDOC ---
Infectious Disease Note Subjective: Subjective pt is without complaints adamant for dc home today ROS: ROS Negative except for above. Vital Signs: Vital Signs Vital Signs Date Time Temp Pulse Resp B/P (MAP) Pulse Ox O2 Delivery O2 Flow Rate FiO2 08/10/18 08:00 Room Air 08/10/18 07:39 102/71 08/10/18 03:00 97.5 66 18 98 97.5 Physical Exam: PHYSICAL EXAM GENERAL: Well-developed, well-nourished male, in no acute distress, nontoxic appearing, cooperative, pleasant. HEENT: Normocephalic, atraumatic, anicteric. No thrush. Oral mucosa moist. NECK: Supple. No JVD. No thyromegaly. LUNGS: Clear bilaterally. No wheezing. HEART: S1, S2. No rubs, gallops, murmurs or rubs. ABDOMEN: Soft, nontender, nondistended, no rebound or guarding. GENITOURINARY: At the base of the penis there is a 2 x 3 cm swelling with mild surrounding erythema. No GUD, no penile discharge. Right medial groin shows swelling about 2.3 cm in size. Mild erythema overlying. No underlying fluctuance appears like a cyst with secondary bacterial infection. BACK: Reveals normal curvature. No CVA tenderness. EXTREMITIES: No edema, no cyanosis, no clubbing. NEUROLOGICAL: Alert and oriented x 3. Grossly nonfocal. PSYCHIATRIC: Cooperative, appropriate mood and affect. Medications: Inpatient Meds: Current Medications Medications (Trade) Dose Ordered Sig/Catrachito Start Time Stop Time Status Last Admin Dose Admin Acetaminophen (Tylenol) 650 mg PRN Q4HRS PRN 08/08/18 18:00 08/09/18 17:59 DC Clindamycin Phosphate 50 ml @ 100 mls/hr 1X ONCE 08/08/18 18:00 08/08/18 18:29 DC 08/08/18 18:20 100 MLS/HR Dextrose (Dextrose 50%-Water Syringe) 12.5 gm PRN Q15MIN PRN 08/08/18 20:15 UNV Enoxaparin Sodium (Lovenox 40mg Syringe) 40 mg Q24H 08/09/18 17:00 08/09/18 16:41 40 MG Hydralazine HCl (Apresoline) 25 mg PRN TID PRN 08/09/18 16:45 Hydrochlorothiazide (Microzide) 12.5 mg DAILY 08/09/18 17:30 08/10/18 07:38 12.5 MG Ibuprofen (Motrin) 600 mg PRN Q6HRS PRN 08/09/18 14:30 08/09/18 14:36 600 MG Insulin Human Lispro (HumaLOG) 0-5 UNITS TIDWMEALS 08/09/18 08:00 UNV Insulin Human Regular (HumuLIN R VIAL) 12 unit 1X ONCE 08/08/18 18:00 08/08/18 18:01 DC 08/08/18 18:20 12 UNIT Lactobacillus Rhamnosus (Culturelle) 1 cap BID 08/09/18 21:00 08/10/18 07:39 1 CAP Lidocaine HCl 10 ml 1X ONCE 08/09/18 10:00 08/09/18 10:01 DC 08/09/18 10:00 10 ML Lisinopril (Prinivil) 20 mg DAILY 08/09/18 17:30 08/10/18 07:39 20 MG Piperacillin Sod/ Tazobactam Sod (Zosyn Per Pharmacy) 1 each PRN DAILY PRN 08/08/18 20:15 Piperacillin Sod/ Tazobactam Sod 3.375 gm/Sodium Chloride 50 ml @ 100 mls/hr Q6HRS 08/08/18 20:30 08/10/18 06:15 100 MLS/HR Sodium Chloride 1,000 ml @ 75 mls/hr [id number] 08/08/18 21:00 08/10/18 00:39 75 MLS/HR Vancomycin HCl (Vanco Per Pharmacy) 1 each PRN DAILY PRN 08/08/18 20:15 08/09/18 11:26 1 EACH Vancomycin HCl (Vancomycin Trough Level) 1 each 1X ONCE 08/10/18 09:30 08/10/18 09:31 Vancomycin HCl 1.5 gm/Sodium Chloride 500 ml @ 250 mls/hr Q12H 08/09/18 10:00 08/09/18 22:35 250 MLS/HR Vancomycin HCl 2 gm/Sodium Chloride 500 ml @ 250 mls/hr 1X ONCE 08/08/18 20:30 08/08/18 22:29 DC 08/08/18 21:39 250 MLS/HR Labs: Lab Laboratory Tests Test 08/09/18 10:35 08/09/18 11:25 08/09/18 16:33 08/09/18 20:30 Creatinine 0.8 mg/dL (0.7-1.3) Estimated GFR (Cockcroft-Gault) 102.7 Glucose (Fingerstick) 266 mg/dL (70-99) 221 mg/dL (70-99) 245 mg/dL (70-99) Test 08/10/18 07:35 Glucose (Fingerstick) 201 mg/dL (70-99) Micro RUN DATE: 08/09/18 PAGE 1 RUN TIME: 7553 [facility] [address] [place] [address] Manuel Lieberman M.D., [employer] PATIENT: SERENA EUGENE ACCT: [id number] LOC: [address] [place] [address] U : [id number] AGE/SX: 47/M ROOM: 440 REG : 08/08/[address]: MINO KUMARI MD : 1970 BED: 1 DIS : STATUS: ADM IN TLOC: SPEC #: [id number] SANTIAGO: 08/08/18 STATUS: RES REQ #: [id number] RECD: 08/08/[address]: MINO KUMARI MD SOURCE: SCROTUM ENTR: 08/08/18-2018 [facility] DR: NHAN PICHARDO MD SPDESC: WOUND BOWMANSEBASTIÁN MD UNKNOWN PCP NAME ORDERED: ANAER/AEROB/GS Procedure Result ANAEROBIC-AEROBIC CULTURE PENDING ANAEROBIC RES 1 PENDING AEROBIC CULT PENDING AEROBIC RES 1 PENDING GRAM STAIN Final Final report GRAM STAIN RES 1 Final Comment Few white blood cells. GRAM STAIN RES 2 Final Comment Many gram positive cocci. Performed at: [facility] [id number] [facility] [address], [place], [place] [id number] Health Aid: FELTON Fleming MD, Phone: [phone] END OF REPORT Objective: Assessment: 1. Scrotal cellulitis, mild. resolving 2. Scrotal abscess s/p I and D of purulent material on 08/09, Cult pending 3. Right thigh abscess with questionable underlying cyst s/p I and D ,08/09, cults pending 4. Diabetes mellitus, poorly controlled. 5. Noncompliance with medication. 6. Bilateral hydrocele. 7. Left varicocele. Plan: Plan of Care Continue empiric IV vancomycin and Zosyn ,cults pending Status post one dose of clindamycin in the ER. Follow up culture and susceptibility results. Likely dc home this weekend depending on cults Pt is adamant for dc home today no matter what Pros and cons discussed dc on linezolid and augmentin wound care per urology f/u with id clinic in 2 weeks D/W SEBASTIÁN WOODALL MD Aug 10, 2018 08:49
[2018-08-10 11:00] VITALS: BP 143/89
[2018-08-10 11:19] LABS: CREATININE 0.8 mg/dL (0.7-1.3); GFR 102.7
[2018-08-10 11:26] LABS: VANC TR 8.4 mcg/mL (10.0-20.0)
[2018-08-10 11:27] LABS: CHOLESTEROL/HDL RATIO 7.4
--- NOTE | 2018-08-10 11:29 | NUR ---
Wound Care WOund care consult for open abscesses. Pt had bedside I&D on 08/[address] Herrera. Removed packing, cleansed wound and repacked with iodoform gauze packing. Pt will follow p in C for dressing change on Monday if he discharges over the weekend, otherwise nurse to change packing daily. No other wounds noted on full skin inspection. WC will continue to follow for possible changes.
[2018-08-10] MEDS ORDERED: VANCOMYCIN 1.75 GM in IV NORMAL SALINE 500ML BAG 500 ML IV SCH (12:00)
--- NOTE | 2018-08-10 12:08 | PDOC ---
PROGRESS NOTES Chief Complaint Chief Complaint Scrotal abscess and R thigh abscess History of Present Illness History of Present Illness The patient was resting comfortably in bed today. He has no complaints. He is anxious to get home. He has some worries today about is insurance coverage but case management was contacted and his questions were answered. He feels ready to go home but is willing to stay for culture results if necessary. Vitals Vitals Vital Signs Date Time Temp Pulse Resp B/P (MAP) Pulse Ox O2 Delivery O2 Flow Rate FiO2 08/10/18 08:00 Room Air 08/10/18 07:39 102/71 08/10/18 07:00 97.5 75 16 97 97.5 Physical Exam Physical Exam General: Alert, Oriented X3, Cooperative Heart: Regular rate, Normal S1, Normal S2, No murmurs Lungs: Clear (No wheezes, rales, or rhonchi) Abdomen: Soft, No tenderness, No masses Extremities: No edema, Normal pulses, No tenderness/swelling Skin: No rashes, No breakdown, No significant lesion Labs LABS Laboratory Tests Test 08/09/18 16:33 08/09/18 20:30 08/10/18 07:35 08/10/18 10:20 Glucose (Fingerstick) 221 mg/dL (70-99) 245 mg/dL (70-99) 201 mg/dL (70-99) Creatinine 0.8 mg/dL (0.7-1.3) Estimated GFR (Cockcroft-Gault) 102.7 Triglycerides Level 343 mg/dL (0-150) Cholesterol Level 223 mg/dL (0-200) LDL Cholesterol, Calculated 124 mg/dL (0-100) VLDL Cholesterol, Calculated 69 mg/dL (0-40) Non-HDL Cholesterol Calculated 193 mg/dL (0-129) HDL Cholesterol 30 mg/dL (40-60) Cholesterol/HDL Ratio 7.4 Thyroid Stimulating Hormone (TSH) 2.021 uIU/mL (0.358-3.74) Vancomycin Level Trough 8.4 mcg/mL (10.0-20.0) Vancomycin Last Dose Date 08/09/18 Vancomycin Last Dose Time 2200 Test 08/10/18 11:47 Glucose (Fingerstick) 201 mg/dL (70-99) Review of Systems Review of Systems Patient denies N/V, CP, fevers, chills, SOB, diarrhea Assessment and Plan Assessmemt and Plan Problems Medical Problems: (1) Hyperglycemia Status: Acute (2) Penile abscess Status: Acute Assessment: Scrotal Abscess and Right Thigh Abscess Untreated and uncontrolled type 2 DM HTN Plan: Vanc and zosyn ID and urology consults s/p I and D 08/09 Waiting on culture results Discussed with case management Vanc trough PT/OT Continue home meds F/u labs DVT prophylaxis Can discharge if ok with ID Comment Review of Relevant I have reviewed the following items max (where applicable) has been applied. Labs Laboratory Tests Test 08/08/18 16:40 08/08/18 16:55 08/08/18 20:57 08/09/18 07:33 Urine Collection Type Unknown Urine Color Yellow Urine Clarity Clear Urine pH 6.0 Urine Specific [place] >=1.030 Urine Protein Negative mg/dL (NEG-TRACE) Urine Glucose (UA) >=1000 mg/dL (NEG) Urine Ketones (Stick) Negative mg/dL (NEG) Urine Blood Negative (NEG) Urine Nitrite Negative (NEG) Urine Bilirubin Negative (NEG) Urine Urobilinogen Dipstick 0.2 mg/dL (0.2 mg/dL) Urine Leukocyte Esterase Negative (NEG) Urine RBC 3-5 /HPF (0-2) Urine WBC 0 /HPF (0-4) Urine Bacteria 0 /HPF (0-FEW) White Blood Count 11.2 x10^3/uL (4.0-11.0) Red Blood Count 5.31 x10^6/uL (4.30-5.70) Hemoglobin 15.8 g/dL (13.0-17.5) Hematocrit 46.2 % (39.0-53.0) Mean Corpuscular Volume 87 fL (79-100) Mean Corpuscular Hemoglobin 30 pg (25-35) Mean Corpuscular Hemoglobin Concent 34 g/dL (31-37) Red Cell Distribution Width 13.3 % (11.5-14.5) Platelet Count 247 x10^3/uL (140-400) Neutrophils (%) (Auto) 68 % (31-73) Lymphocytes (%) (Auto) 23 % (24-48) Monocytes (%) (Auto) 7 % (0-9) Eosinophils (%) (Auto) 2 % (0-3) Basophils (%) (Auto) 1 % (0-3) Neutrophils # (Auto) 7.6 x10^3uL (1.8-7.7) Lymphocytes # (Auto) 2.6 x10^3/uL (1.0-4.8) Monocytes # (Auto) 0.8 x10^3/uL (0.0-1.1) Eosinophils # (Auto) 0.2 x10^3/uL (0.0-0.7) Basophils # (Auto) 0.1 x10^3/uL (0.0-0.2) Sodium Level 136 mmol/L (136-145) Potassium Level 3.6 mmol/L (3.5-5.1) Chloride Level 101 mmol/L (98-107) Carbon Dioxide Level 23 mmol/L (21-32) Anion Gap 12 (6-14) Blood Urea Nitrogen 10 mg/dL (8-26) Creatinine 0.9 mg/dL (0.7-1.3) Estimated GFR (Cockcroft-Gault) 89.7 BUN/Creatinine Ratio 11 (6-20) Glucose Level 353 mg/dL (70-99) Lactic Acid Level 0.6 mmol/L (0.4-2.0) Calcium Level 8.2 mg/dL (8.5-10.1) Magnesium Level 1.8 mg/dL (1.8-2.4) Total Bilirubin 0.3 mg/dL (0.2-1.0) Aspartate Amino Transf (AST/SGOT) 18 U/L (15-37) Alanine Aminotransferase (ALT/SGPT) 23 U/L (16-63) Alkaline Phosphatase 95 U/L (46-116) Total Protein 6.8 g/dL (6.4-8.2) Albumin 3.3 g/dL (3.4-5.0) Albumin/Globulin Ratio 0.9 (1.0-1.7) Glucose (Fingerstick) 160 mg/dL (70-99) 235 mg/dL (70-99) Test 08/09/18 10:35 08/09/18 11:25 08/09/18 16:33 08/09/18 20:30 Creatinine 0.8 mg/dL (0.7-1.3) Estimated GFR (Cockcroft-Gault) 102.7 Glucose (Fingerstick) 266 mg/dL (70-99) 221 mg/dL (70-99) 245 mg/dL (70-99) Test 08/10/18 07:35 08/10/18 10:20 08/10/18 11:47 Glucose (Fingerstick) 201 mg/dL (70-99) 201 mg/dL (70-99) Creatinine 0.8 mg/dL (0.7-1.3) Estimated GFR (Cockcroft-Gault) 102.7 Triglycerides Level 343 mg/dL (0-150) Cholesterol Level 223 mg/dL (0-200) LDL Cholesterol, Calculated 124 mg/dL (0-100) VLDL Cholesterol, Calculated 69 mg/dL (0-40) Non-HDL Cholesterol Calculated 193 mg/dL (0-129) HDL Cholesterol 30 mg/dL (40-60) Cholesterol/HDL Ratio 7.4 Thyroid Stimulating Hormone (TSH) 2.021 uIU/mL (0.358-3.74) Vancomycin Level Trough 8.4 mcg/mL (10.0-20.0) Vancomycin Last Dose Date 08/09/18 Vancomycin Last Dose Time 2199 Laboratory Tests Test 08/09/18 16:33 08/09/18 20:30 08/10/18 07:35 08/10/18 10:20 Glucose (Fingerstick) 221 mg/dL (70-99) 245 mg/dL (70-99) 201 mg/dL (70-99) Creatinine 0.8 mg/dL (0.7-1.3) Estimated GFR (Cockcroft-Gault) 102.7 Triglycerides Level 343 mg/dL (0-150) Cholesterol Level 223 mg/dL (0-200) LDL Cholesterol, Calculated 124 mg/dL (0-100) VLDL Cholesterol, Calculated 69 mg/dL (0-40) Non-HDL Cholesterol Calculated 193 mg/dL (0-129) HDL Cholesterol 30 mg/dL (40-60) Cholesterol/HDL Ratio 7.4 Thyroid Stimulating Hormone (TSH) 2.021 uIU/mL (0.358-3.74) Vancomycin Level Trough 8.4 mcg/mL (10.0-20.0) Vancomycin Last Dose Date 08/09/18 Vancomycin Last Dose Time 2199 Test 08/10/18 11:47 Glucose (Fingerstick) 201 mg/dL (70-99) Microbiology 08/08/18 Blood Culture - Preliminary, Resulted NO GROWTH AFTER 1 DAY 08/08/18 Anaerobic/Aerobic Culture, Resulted Pending 08/08/18 Anaerobic Culture Result 1 (SHRADDHA), Resulted Pending 08/08/18 Aerobic Culture, Resulted Pending 08/08/18 Aerobic Culture Result 1 (SHRADDHA), Resulted Pending 08/08/18 Gram Stain - Final, Resulted 08/08/18 Gram Stain Result 1 (SHRADDHA) - Final, Resulted 08/08/18 Gram Stain Result 2 (SHRADDHA) - Final, Resulted Medications Current Medications Sodium Chloride 1,000 ml @ 1,000 mls/hr 1X ONCE IV Last administered on at 16:30; Start 08/08/18 at 16:30; Stop 08/08/18 at 17:29; Status DC Clindamycin Phosphate 50 ml @ 100 mls/hr 1X ONCE IV Last administered on 08/08at 18:20; Start 08/08/18 at 18:00; Stop 08/08/18 at 18:29; Status DC Insulin Human Regular (HumuLIN R VIAL) 12 unit 1X ONCE SQ Last administered on 08/08/18at 18:20; Start 08/08/18 at 18:00; Stop 08/08/18 at 18:01; Status DC Acetaminophen (Tylenol) 650 mg PRN Q4HRS PRN PO FEVER; Start 08/08/18 at 18:00 ; Stop 08/09/18 at 17:59; Status DC Insulin Human Lispro (HumaLOG) 0-5 UNITS TIDWMEALS SQ Last administered on 08/10at 11:54; Start 08/09/18 at 08:00 Dextrose (Dextrose 50%-Water Syringe) 12.5 gm PRN Q15MIN PRN IV SEE COMMENTS; Start 08/08/18 at 18:00 Piperacillin Sod/ Tazobactam Sod (Zosyn Per Pharmacy) 1 each PRN DAILY PRN MC SEE COMMENTS; Start 08/08/18 at 20:15 Vancomycin HCl (Vanco Per Pharmacy) 1 each PRN DAILY PRN MC SEE COMMENTS Last administered on 08/09/18at 11:26; Start 08/08/18 at 20:15 Insulin Human Lispro (HumaLOG) 0-5 UNITS TIDWMEALS SQ ; Start 08/09/18 at 08:00 ; Status UNV Dextrose (Dextrose 50%-Water Syringe) 12.5 gm PRN Q15MIN PRN IV SEE COMMENTS; Start 08/08/18 at 20:15; Status UNV Sodium Chloride 1,000 ml @ 75 mls/hr [id number] IV Last administered on at 00:39; Start 08/08/18 at 21:00 Piperacillin Sod/ Tazobactam Sod 3.375 gm/Sodium Chloride 50 ml @ 100 mls/hr Q6HRS IV Last administered on 08/10/18at 06:15; Start 08/08/18 at 20:30 Vancomycin HCl 2 gm/Sodium Chloride 500 ml @ 250 mls/hr 1X ONCE IV Last administered on 08/08/18at 21:39; Start 08/08/18 at 20:30; Stop 08/08/18 at 22:29 ; Status DC Vancomycin HCl 1.5 gm/Sodium Chloride 500 ml @ 250 mls/hr Q12H IV Last administered on 08/09/18at 22:35; Start 08/09/18 at 10:00; Stop 08/10/18 at 11:42 ; Status DC Vancomycin HCl (Vancomycin Trough Level) 1 each 1X ONCE MC ; Start 08/10/18 at 09:30; Stop 08/10/18 at 09:31; Status DC Lidocaine HCl 10 ml 1X ONCE IJ Last administered on 08/09/18at 10:00; Start at 10:00; Stop 08/09/18 at 10:01; Status DC Ibuprofen (Motrin) 200 mg PRN Q6HRS PRN PO INFLAMMATION Last administered on at 10:33; Start 08/09/18 at 10:30; Stop 08/09/18 at 14:30; Status DC Lactobacillus Rhamnosus (Culturelle) 1 cap BID PO Last administered on at 07:39; Start 08/09/18 at 21:00 Ibuprofen (Motrin) 600 mg PRN Q6HRS PRN PO INFLAMMATION Last administered on at 14:36; Start 08/09/18 at 14:30 Enoxaparin Sodium (Lovenox 40mg Syringe) 40 mg Q24H SQ Last administered on at 16:41; Start 08/09/18 at 17:00 Lisinopril (Prinivil) 20 mg DAILY PO Last administered on 08/10/18at 07:39; Start 08/09/18 at 17:30 Hydrochlorothiazide (Microzide) 12.5 mg DAILY PO Last administered on at 07:38; Start 08/09/18 at 17:30 Hydralazine HCl (Apresoline) 25 mg PRN TID PRN PO sbp greate than 180; Start at 16:45 Vancomycin HCl 1.75 gm/Sodium Chloride 500 ml @ 250 mls/hr Q12H IV Last administered on 08/10/18at 11:50; Start 08/10/18 at 12:00 Vitals/I & O Vital Sign - Last 24 Hours 08/09/18 08/09/18 08/09/18 08/09/18 15:00 17:06 19:00 20:00 Temp 97.7 97.9 97.7 97.9 Pulse 81 81 80 Resp 18 18 B/P (MAP) 134/83 (100) 134/83 131/79 (96) Pulse Ox 99 98 O2 Delivery Room Air Room Air Room Air 08/09/18 08/10/18 08/10/18 08/10/18 23:00 03:00 07:00 07:39 Temp 97.7 97.5 97.5 97.7 97.5 97.5 Pulse 76 66 75 Resp 18 18 16 B/P (MAP) 118/68 (85) 128/66 (86) 102/71 (81) 102/71 Pulse Ox 98 98 97 O2 Delivery Room Air Room Air Room Air 08/10/18 08:00 O2 Delivery Room Air Intake and Output 08/09/18 08/09/18 08/10/18 15:00 23:00 07:00 Intake Total 300 ml 450 ml 1372 ml Balance 300 ml 450 ml 1372 ml TY KEY III DO Aug 10, 2018 12:08
--- NOTE | 2018-08-10 14:18 | PDOC3 ---
Discharge Summary Visit Information Date of Admission: Aug 08, 2018 Date of Discharge: Aug 10, 2018 Admitting Diagnosis: scrotal abscess, Hyperglycemia Final Diagnosis Problems Medical Problems: (1) Hyperglycemia Status: Acute (2) Penile abscess Status: Acute Brief Hospital Course Allergies Allergies Coded Allergies Type Severity Reaction Last Updated Verified No Known Drug Allergies 08/08/18 No Vital Signs Vital Signs Date Time Temp Pulse Resp B/P (MAP) Pulse Ox O2 Delivery O2 Flow Rate FiO2 08/10/18 11:00 97.9 78 16 143/89 (107) 100 Room Air 97.9 Lab Results Laboratory Tests Test 08/08/18 16:40 08/08/18 16:55 08/08/18 20:57 08/09/18 07:33 Urine Collection Type Unknown Urine Color Yellow Urine Clarity Clear Urine pH 6.0 Urine Specific [place] >=1.030 Urine Protein Negative mg/dL (NEG-TRACE) Urine Glucose (UA) >=1000 mg/dL (NEG) Urine Ketones (Stick) Negative mg/dL (NEG) Urine Blood Negative (NEG) Urine Nitrite Negative (NEG) Urine Bilirubin Negative (NEG) Urine Urobilinogen Dipstick 0.2 mg/dL (0.2 mg/dL) Urine Leukocyte Esterase Negative (NEG) Urine RBC 3-5 /HPF (0-2) Urine WBC 0 /HPF (0-4) Urine Bacteria 0 /HPF (0-FEW) White Blood Count 11.2 x10^3/uL (4.0-11.0) Red Blood Count 5.31 x10^6/uL (4.30-5.70) Hemoglobin 15.8 g/dL (13.0-17.5) Hematocrit 46.2 % (39.0-53.0) Mean Corpuscular Volume 87 fL (79-100) Mean Corpuscular Hemoglobin 30 pg (25-35) Mean Corpuscular Hemoglobin Concent 34 g/dL (31-37) Red Cell Distribution Width 13.3 % (11.5-14.5) Platelet Count 247 x10^3/uL (140-400) Neutrophils (%) (Auto) 68 % (31-73) Lymphocytes (%) (Auto) 23 % (24-48) Monocytes (%) (Auto) 7 % (0-9) Eosinophils (%) (Auto) 2 % (0-3) Basophils (%) (Auto) 1 % (0-3) Neutrophils # (Auto) 7.6 x10^3uL (1.8-7.7) Lymphocytes # (Auto) 2.6 x10^3/uL (1.0-4.8) Monocytes # (Auto) 0.8 x10^3/uL (0.0-1.1) Eosinophils # (Auto) 0.2 x10^3/uL (0.0-0.7) Basophils # (Auto) 0.1 x10^3/uL (0.0-0.2) Sodium Level 136 mmol/L (136-145) Potassium Level 3.6 mmol/L (3.5-5.1) Chloride Level 101 mmol/L (98-107) Carbon Dioxide Level 23 mmol/L (21-32) Anion Gap 12 (6-14) Blood Urea Nitrogen 10 mg/dL (8-26) Creatinine 0.9 mg/dL (0.7-1.3) Estimated GFR (Cockcroft-Gault) 89.7 BUN/Creatinine Ratio 11 (6-20) Glucose Level 353 mg/dL (70-99) Lactic Acid Level 0.6 mmol/L (0.4-2.0) Calcium Level 8.2 mg/dL (8.5-10.1) Magnesium Level 1.8 mg/dL (1.8-2.4) Total Bilirubin 0.3 mg/dL (0.2-1.0) Aspartate Amino Transf (AST/SGOT) 18 U/L (15-37) Alanine Aminotransferase (ALT/SGPT) 23 U/L (16-63) Alkaline Phosphatase 95 U/L (46-116) Total Protein 6.8 g/dL (6.4-8.2) Albumin 3.3 g/dL (3.4-5.0) Albumin/Globulin Ratio 0.9 (1.0-1.7) Glucose (Fingerstick) 160 mg/dL (70-99) 235 mg/dL (70-99) Test 08/09/18 10:35 08/09/18 11:25 08/09/18 16:33 08/09/18 20:30 Creatinine 0.8 mg/dL (0.7-1.3) Estimated GFR (Cockcroft-Gault) 102.7 Glucose (Fingerstick) 266 mg/dL (70-99) 221 mg/dL (70-99) 245 mg/dL (70-99) Test 08/10/18 07:35 08/10/18 10:20 08/10/18 11:47 Glucose (Fingerstick) 201 mg/dL (70-99) 201 mg/dL (70-99) Creatinine 0.8 mg/dL (0.7-1.3) Estimated GFR (Cockcroft-Gault) 102.7 Triglycerides Level 343 mg/dL (0-150) Cholesterol Level 223 mg/dL (0-200) LDL Cholesterol, Calculated 124 mg/dL (0-100) VLDL Cholesterol, Calculated 69 mg/dL (0-40) Non-HDL Cholesterol Calculated 193 mg/dL (0-129) HDL Cholesterol 30 mg/dL (40-60) Cholesterol/HDL Ratio 7.4 Thyroid Stimulating Hormone (TSH) 2.021 uIU/mL (0.358-3.74) Vancomycin Level Trough 8.4 mcg/mL (10.0-20.0) Vancomycin Last Dose Date 08/09/18 Vancomycin Last Dose Time 2199 Laboratory Tests Test 08/09/18 16:33 08/09/18 20:30 08/10/18 07:35 08/10/18 10:20 Glucose (Fingerstick) 221 mg/dL (70-99) 245 mg/dL (70-99) 201 mg/dL (70-99) Creatinine 0.8 mg/dL (0.7-1.3) Estimated GFR (Cockcroft-Gault) 102.7 Triglycerides Level 343 mg/dL (0-150) Cholesterol Level 223 mg/dL (0-200) LDL Cholesterol, Calculated 124 mg/dL (0-100) VLDL Cholesterol, Calculated 69 mg/dL (0-40) Non-HDL Cholesterol Calculated 193 mg/dL (0-129) HDL Cholesterol 30 mg/dL (40-60) Cholesterol/HDL Ratio 7.4 Thyroid Stimulating Hormone (TSH) 2.021 uIU/mL (0.358-3.74) Vancomycin Level Trough 8.4 mcg/mL (10.0-20.0) Vancomycin Last Dose Date 08/09/18 Vancomycin Last Dose Time 0 Test 08/10/18 11:47 Glucose (Fingerstick) 201 mg/dL (70-99) Brief Hospital Course Mr. Yuval is a 47 old [sex] who presented with [a scrotal abscess and hyperglycemia. He was admitted and we treated him with IV antibiotics including IV vancomycin and IV Zosyn and we consultation ID. We had a consult surgery as well he was taken for an incision and drainage of his scrotal abscess. Today I saw and examined the patient he was doing great and requesting to go home. His heart tones were normal his lungs were clear he had clean dry and intact dressings on his scrotum. Overall he seems to be as baseline if okay with infectious disease we plan to discharge. Disposition home if okay with ID Activity as tolerated Diet diabetic Follow-up he'll follow-up with his [facility] doctor in a week Medications please see below Total time 34 minutes. ] Discharge Information Follow Up: Weeks Disposition/Orders: D/C to Home No Active Prescriptions or Reported Meds TY KEY III DO Aug 10, 2018 14:18
[2018-08-10] MEDS ORDERED: LINE600T PO (15:44)
[2018-08-10] MEDS ORDERED: AMOX1TAB61 PO (15:45)
--- NOTE | 2018-08-10 16:00 | NUR ---
Patient left the building with all of his belongings around 1358. Discharge education completed with the patient and instructions on F/U appointment with the wound care clinic addressed. He was also told to F/U with his PCP in one week. No concerns noted upon discharge.
[2018-08-11 00:13] LABS: HEMOGLOBIN A1C 12.5 % (4.8-5.6)
== END 2018-08-10 15:58 | disposition home or self-care (01) | DRG 717 ==
LOC: ER 14:37 → 4 NORTH 18:00 → ER 18:53
PROVIDERS: ADMIT Internal Medicine; ATTEND Internal Medicine
PROC: 0V950ZZ Drainage of Scrotum, Open Approach (ICD-10-PCS; principal; 2018-08-09)
PROC: 0Y9C0ZZ Drainage of Right Upper Leg, Open Approach (ICD-10-PCS; 2018-08-09)
DX: N49.2 Inflammatory disorders of scrotum (principal); L02.415 Cutaneous abscess of right lower limb; N50.3 Cyst of epididymis; N43.3 Hydrocele, unspecified; N48.89 Other specified disorders of penis; I86.1 Scrotal varices; E78.00 Pure hypercholesterolemia, unspecified; I10 Essential (primary) hypertension; E11.65 Type 2 diabetes mellitus with hyperglycemia; E78.5 Hyperlipidemia, unspecified; D72.829 Elevated white blood cell count, unspecified; Z91.19 Patient's noncompliance with other medical treatment and regimen; Z91.14 Patient's other noncompliance with medication regimen; Z83.3 Family history of diabetes mellitus
CPT/HCPCS: 36415; 76870; 80053; 80061; 80202; 81001; 82565; 82962; 83036; 83605; 83735; 84443; 85025; 87040; 87071; 87075; 87186; 96361; 96365; 96372; J1650; J1815; J2001; J2543; J3370; J3490; J7030; J7040; 99285-25